=== PATIENT | female | born 1970 | race Caucasian/White ===

== ENCOUNTER 2023-12-01 05:48 | Emergency (ER) | payer MEDICAID ==
[~2023-12-01] VITALS: Ht 165.1 cm; Wt 61.4 kg
[2023-12-01 05:53] VITALS: TEMP 98.7
[2023-12-01 08:02] LABS: BILIRUBIN,URINE NEGATIVE (Neg); CLARITY,URINE SLIGHTLY CLOUDY (Clear); COLOR,URINE YELLOW (Yellow); GLUCOSE, URINE NEGATIVE (Neg); KETONES,URINE NEGATIVE (Neg); LEUKOCYTE ESTERASE ,URINE NEGATIVE (Neg); NITRITES, URINE NEGATIVE (Neg); OCCULT BLOOD,URINE NEGATIVE (Neg); PROTEIN,URINE NEGATIVE (Neg)
[2023-12-01 08:03] LABS: UA COLLECTION TYPE CLN CATCH MIDSTREAM
[2023-12-01 08:08] LABS: MUCUS STRANDS MANY /LPF (Neg); SQUAMOUS EPITHELIAL CELL,UR MANY /LPF (FEW)
[2023-12-01 08:09] LABS: BACTERIA,URINE FEW /HPF (Neg); RBC,URINE 0-2 /HPF (0-2); WBC,URINE 0-4 /HPF (0-4)
[2023-12-01 08:43] VITALS: BP 156/110; PULSE 62; RESP 16; O2SAT 100
[2023-12-01] MEDS: ketorolac trometh inj. 60 MG/2 ML VIAL IM ONE (08:53)
== END 2023-12-01 09:04 | disposition home or self-care (01) ==
LOC: ER 05:48
DX: R10.9 Unspecified abdominal pain (principal); R21 Rash and other nonspecific skin eruption
CPT/HCPCS: 81001; 96372; 99283; J1885

== ENCOUNTER 2023-12-05 07:08 | Day surgery (SDC) | payer MEDICAID ==
[~2023-12-05] VITALS: Ht 165.1 cm; Wt 61.4 kg
[2023-12-05] MEDS ORDERED: LEVO137C4 PO (07:19)
[2023-12-05 07:47] VITALS: BP 154/105; PULSE 56; RESP 14
[2023-12-05] MEDS ORDERED: diphenhydrAMINE 50 mg/ml inj ONE (08:24)
[2023-12-05] MEDS ORDERED: MIDAZolam 1 MG/ML 5ML VIAL ONE (08:24)
[2023-12-05] MEDS ORDERED: fentaNYL/PF 50MCG/1 ML 2ML syringe ONE (08:24)
[2023-12-05 09:05] VITALS: BP 107/66; PULSE 49; RESP 11; O2SAT 100
[2023-12-05 09:15] VITALS: BP 102/62; PULSE 48; RESP 18; O2SAT 97
[2023-12-05 09:25] VITALS: BP 96/61; PULSE 96; RESP 16; O2SAT 96
[2023-12-05 09:35] VITALS: BP 116/72; PULSE 49; RESP 16; O2SAT 97
== END 2023-12-05 09:50 | disposition home or self-care (01) ==
LOC: GI LAB 07:08 → EDUNIT# 08:00 → GI LAB 09:50
PROVIDERS: ATTEND Internal Medicine Gastroenterology
DX: R19.4 Change in bowel habit (principal); K64.8 Other hemorrhoids
CPT/HCPCS: 45378; 99152; J2250; J3010; J7030; Z7512; A4620; J1200

== ENCOUNTER 2023-12-06 09:13 | Day surgery (SDC) | payer MEDICAID ==
[~2023-12-06] VITALS: Ht 165.1 cm; Wt 61.4 kg
[~2023-12-06 09:13] MED LIST: LEVO137C4 PO
[2023-12-06 10:45] VITALS: BP 129/73; PULSE 55; RESP 12
[2023-12-06] MEDS ORDERED: fentaNYL/PF 50MCG/1 ML 2ML syringe ONE (12:29)
[2023-12-06] MEDS ORDERED: MIDAZolam 1 MG/ML 5ML VIAL ONE (12:30)
[2023-12-06] MEDS ORDERED: diphenhydrAMINE 50 mg/ml inj ONE (12:30)
[2023-12-06 12:45] VITALS: BP 101/62; PULSE 48; RESP 12; O2SAT 95
[2023-12-06 12:55] VITALS: BP 110/82; PULSE 46; RESP 14; O2SAT 97
[2023-12-06 13:05] VITALS: BP 111/73; PULSE 47; RESP 12; O2SAT 97
[2023-12-06 13:15] VITALS: BP 99/62; PULSE 47; RESP 14; O2SAT 96
== END 2023-12-06 13:30 | disposition home or self-care (01) ==
LOC: GI LAB 09:13
PROVIDERS: ATTEND Internal Medicine Gastroenterology
DX: R10.13 Epigastric pain (principal); R10.11 Right upper quadrant pain; R10.12 Left upper quadrant pain; K29.70 Gastritis, unspecified, without bleeding; K31.89 Other diseases of stomach and duodenum; K29.80 Duodenitis without bleeding
CPT/HCPCS: 43239; 99152; J2250; J3010; J7030; Z7512; A4620; J1200